=== PATIENT | male | born 1990 | race American Indian/Alaskan Native ===

== ENCOUNTER 2016-08-05 11:27 | Outpatient (CLI) | payer MEDICAID ==
--- NOTE | 2016-08-05 12:48 | Cat Scan Report ---
CT SCAN OF THE lumbar SPINE: HISTORY: Spastic, hemiplegic cerebral palsy, back pain. TECHNIQUE: Contiguous 1.25 mm axial images of the lumbar spine were obtained. Sagittal and coronal reformatted images. FINDINGS: There is normal alignment of the lumbar spine. The body, pedicles and posterior ligaments appear normal. No evidence of fracture or subluxation is seen. The spinal canal appears normal. The paravertebral soft tissues appear normal. IMPRESSION: Unremarkable CT of the lumbar spine. No acute process is noted. No significant degenerative findings.
== END 2016-08-05 11:28 | disposition home or self-care (01) ==
LOC: CT 11:27
PROVIDERS: ATTEND Physical Medicine & Rehabilitation
DX: G80.2 Spastic hemiplegic cerebral palsy (principal); M54.9 Dorsalgia, unspecified
CPT/HCPCS: 72131

== ENCOUNTER 2016-11-11 08:26 | Emergency (ER) | payer MEDICAID ==
[2016-11-11 08:42] VITALS: BP 128/91
[2016-11-11 09:07] LABS: Hematocrit 49.7 % (35.5-45.6); Hemoglobin 16.6 gm/dl (11.8-15.2); Mean Corpuscular HGB Conc 34 % (32-34); Mean Corpuscular Hemoglobin 31 pg (28-32); Mean Corpuscular Volume 92 fl (84-94); Platelet Count 251 K/mm3 (140-440); Red Blood Count 5.41 M/mm3 (3.65-5.03); Red Cell Distribution Width 13.7 % (13.2-15.2)
[2016-11-11 09:12] LABS: Anion Gap 17 mmol/L; Blood Urea Nitrogen 20 mg/dL (9-20); Calcium 9.9 mg/dL (8.4-10.2); Carbon Dioxide 28 mmol/L (22-30); Chloride 101.5 mmol/L (98-107); Glucose 95 mg/dL (75-100); Potassium 4.7 mmol/L (3.6-5.0); Sodium 142 mmol/L (137-145)
--- NOTE | 2016-11-11 09:29 | Cat Scan Report ---
CT HEAD WITHOUT CONTRAST INDICATION: Neck pain, headache. Shunt since childhood. COMPARISON: None similar. FINDINGS: Noncontrast head CT demonstrates a right trans-frontal shunt catheter in the right lateral ventricle with its tip possibly in the thalamus on the right, axial image 32, series 2. No hydrocephalus, acute infarct, hemorrhage, mass effect or midline shift. Subtle corpus callosal dysgenesis not entirely excluded. No abnormal extra-axial fluid collections. Normal posterior fossa with preserved basilar cisterns. Unremarkable eye globes. Right mid ethmoid air cell opacification/possible old lamina papyracea fracture. Clear remainder imaged paranasal sinuses and mastoid air cells. Intact calvarium. Normal scalp. CONCLUSION: No acute intracranial CT abnormality with right trans-frontal shunt noted, as described. Please correlate. Thank you for the opportunity to participate in this patient's care.
--- NOTE | 2016-11-13 00:34 | ED Elopement Review ---
ED Pt Elopement review - Results review Lab results: Laboratory Tests 11/11/16 11/11/16 08:47 08:47 WBC 9.0 RBC 5.41 H Hgb 16.6 H Hct 49.7 H MCV 92 MCH 31 MCHC 34 RDW 13.7 Plt Count 251 Sodium 142 Potassium 4.7 Chloride 101.5 Carbon Dioxide 28 Anion Gap 17 BUN 20 Creatinine 1.0 Estimated GFR > 60 BUN/Creatinine Ratio 20.00 Glucose 95 Calcium 9.9 - Call Back decision Pt Call Back Decision: No action required
== END 2016-11-11 18:55 | disposition left against medical advice (07) ==
LOC: ED 08:26
DX: M54.2 Cervicalgia (principal); Z53.21 Procedure and treatment not carried out due to patient leaving prior to being seen by health care provider
CPT/HCPCS: 36415; 70450; 80048; 85027